=== PATIENT | female | born 1950 | race Caucasian/White ===

== ENCOUNTER 2016-08-10 06:41 | Day surgery (SDC) | payer MEDICARE, OTHER ==
[2016-08-07 14:01] LABS: HEMOGLOBIN 13.9 g/dL (12.0-16.0)
[2016-08-07 14:11] LABS: BUN (BLOOD UREA NITROGEN) 20 MG/DL (6-23); CALCIUM, SERUM 9.6 MG/DL (8.5-10.4); CHLORIDE, SERUM 103 MMOL/L (96-112); CO2 (CARBON DIOXIDE) 31 MMOL/L (24-34); CREATININE 0.83 MG/DL (0.55-1.02); GFR AFRICAN AMERICAN 86 ML/MIN (>=60); GFR NON AFRICAN AMERICAN 74 ML/MIN (>=60); GLUCOSE, SERUM 82 MG/DL (60-99); POTASSIUM, SERUM 4.3 MMOL/L (3.5-5.3); SODIUM, SERUM 140 MMOL/L (135-148)
[~2016-08-10 06:41] MED LIST: CHONDROITIN PO; CLARIT10 PO; COZ25 PO; DIL2TAB PO; FISH OIL1200 MG PO; GLUCOSAMINEPO PO; HALF81 PO; MAX25 PO; PR25 PO; PRILOSEC40 MG PO; VITAMIN B12 OTC PO
[2016-10-11] MEDS ORDERED: MULTIPLE VIT PO (11:54)
[2016-10-11] MEDS ORDERED: CYANO1000T PO (11:54)
== END 2016-08-10 16:18 | disposition home or self-care (01) ==
LOC: SDC 06:41
PROVIDERS: Ophthalmology
PROC: 08RK3JZ Replacement of Left Lens with Synthetic Substitute, Percutaneous Approach (ICD-10-PCS; principal; 2016-08-10 08:30)
DX: H25.12 Age-related nuclear cataract, left eye (principal); I10 Essential (primary) hypertension; K21.9 Gastro-esophageal reflux disease without esophagitis; Z88.0 Allergy status to penicillin; Z88.5 Allergy status to narcotic agent; Z88.8 Allergy status to other drugs, medicaments and biological substances; Z79.82 Long term (current) use of aspirin; Z79.899 Other long term (current) drug therapy; Z90.49 Acquired absence of other specified parts of digestive tract; Z98.890 Other specified postprocedural states
CPT/HCPCS: 36415; 80048; 85014; 85018; 93005; J2405; J3370